=== PATIENT | male | born 1990 | race Native Hawaiian/Other Pacific Islander ===

== ENCOUNTER 2017-03-25 09:15 | Outpatient (CLI) | payer BC | END 2017-03-25 19:59 | disposition home or self-care (01) | LOC: US 09:15 | DX: K29.60 Other gastritis without bleeding (principal); R11.0 Nausea; K21.9 Gastro-esophageal reflux disease without esophagitis ==

== ENCOUNTER 2017-04-07 12:05 | Outpatient (CLI) | payer BC | END 2017-04-07 13:40 | disposition home or self-care (01) | LOC: NM 12:05 | DX: K29.60 Other gastritis without bleeding (principal); K21.9 Gastro-esophageal reflux disease without esophagitis; R11.0 Nausea; R10.84 Generalized abdominal pain | CPT/HCPCS: A9537 ==